=== PATIENT | female | born 1995 | race Caucasian/White ===

== ENCOUNTER 2017-07-26 03:05 | Emergency (ER) | payer MEDICAID ==
--- NOTE | 2017-07-26 03:34 | EDM.PDOC ---
ED HPI GENERAL MEDICAL PROBLEM - General Chief Complaint: General Stated Complaint: heavy vag bleeding Time Seen by Provider: 07/26/17 03:32 Source of Information: Reports: Patient History Limitations: Reports: No Limitations - History of Present Illness INITIAL COMMENTS - FREE TEXT/NARRATIVE: This patient is a 22 year old female that presents to the ER. Patient reports that she is 3 weeks post vaginal delivery without complications. She reports that she is G0, P1, A0. The patient reports that she has not had any bleeding recently. She reports then this morning she was laying in bed and felt as thought she had a lot of bleeding. She reports she got up went to the bathroom, had some bleeding then passed a large blood clot about size of a baseball. She reports the clot flushed down the toilet. She reports then she felt lightheaded. Patient reports that after she passed the clot her bleeding has resolved. Patent denies isbell, n, v, d, f, cp, soa, abd pain, pelvic pain, pelvic cramping. She is alert and oriented. She reports calling OB fish boning machine feeder and instructed to come to ER to be evaluated. Stable. Onset Date: 07/26/17 Onset Time: 01:00 Duration: Resolved Prior to Arrival Severity: Mild Improves with: Reports: None Worsens with: Reports: None Associated Symptoms: Denies: Confusion, Chest Pain, Cough, cough w sputum, Diaphoresis, Fever/Chills, Headaches, Loss of Appetite, Malaise, Nausea/Vomiting , Rash, Seizure, Shortness of Breath, Syncope, Weakness - Related Data Allergies Allergy/AdvReac Type Severity Reaction Status Date / Time No Known Allergies Allergy Verified 07/26/17 03:09 Home Meds: Home Meds . [No Known Home Meds] 05/08/17 [History] Past Medical History - Past Health History Medical/Surgical History: Denies Medical/Surgical History Social & Family History - Family History Family Medical History: Noncontributory - Tobacco Use Smoking Status *Q: Never Smoker Second Hand Smoke Exposure: No ED ROS GENERAL - Review of Systems Review Of Systems: See Below Constitutional: Reports: No Symptoms HEENT: Reports: No Symptoms Respiratory: Reports: No Symptoms Cardiovascular: Reports: Lightheadedness. Denies: Chest Pain, Dyspnea on Exertion, Syncope Endocrine: Reports: No Symptoms GI/Abdominal: Reports: No Symptoms : Reports: Other (vaginal bleeding with 1 baseball sized clot, then resolved. ) Musculoskeletal: Reports: No Symptoms Skin: Reports: No Symptoms Neurological: Reports: No Symptoms Psychiatric: Reports: No Symptoms Hematologic/Lymphatic: Reports: No Symptoms Immunologic: Reports: No Symptoms ED EXAM, GENERAL - Physical Exam Exam: See Below Exam Limited By: No Limitations General Appearance: Alert, WD/WN, No Apparent Distress Eye Exam: Bilateral Eye: Normal Inspection, PERRL Ears: Normal External Exam, Normal Canal, Hearing Grossly Normal, Normal TMs Ear Exam: Bilateral Ear: Auricle Normal, Canal Normal, TM normal Nose: Normal Inspection, Normal Mucosa, No Blood Throat/Mouth: Normal Inspection, Normal Lips, Normal Teeth, Normal Gums, Normal Oropharynx, Normal Voice, No Airway Compromise Head: Atraumatic, Normocephalic Neck: Normal Inspection, Supple, Non-Tender, Full Range of Motion Respiratory/Chest: No Respiratory Distress, Lungs Clear, Normal Breath Sounds, No Accessory Muscle Use Cardiovascular: Normal Peripheral Pulses, Regular Rate, Rhythm, No Edema, No Gallop, No JVD, No Murmur, No Rub Peripheral Pulses: 2+: Radial (L), Radial (R), Posterior Tibial (L), Posterior Tibial (R) GI/Abdominal: Normal Bowel Sounds, Soft, Non-Tender, No Organomegaly, No Distention, No Abnormal Bruit, No Mass, Pelvis Stable (Female) Exam: Vaginal Bleeding (mild to moderate. ), Other (With RAFAEL Simms at bedside and assistance. ). No: Adnexal Mass, Adnexal Tenderness, Cervical Dilatation, Cervical Discharge, Enlarged Uterus, Uterine Tenderness, Vaginal Discharge, Vaginal Lesions, Vaginal Tears Rectal (Female) Exam: Deferred Back Exam: Normal Inspection, Full Range of Motion. No: CVA Tenderness (L), CVA Tenderness (R) Extremities: Normal Inspection, Normal Range of Motion, Non-Tender, No Pedal Edema, Normal Capillary Refill Neurological: Alert, Oriented Psychiatric: Normal Affect, Normal Mood Skin Exam: Warm, Dry, Intact, Normal Color, No Rash Lymphatic: No Adenopathy Course - Vital Signs Last Recorded V/S: Last Vital Signs Temp 98.2 F 07/26/17 03:14 Pulse 65 07/26/17 03:14 Resp 18 07/26/17 03:14 BP 116/54 L 07/26/17 03:14 Pulse Ox 99 07/26/17 03:14 - Orders/Labs/Meds Labs: Laboratory Tests 07/26/17 07/26/17 07/26/17 Range/Units 03:36 03:36 03:46 WBC 5.3 (5.0-10.0) 10^3/uL RBC 4.63 (4.00-5.50) 10^6/uL Hgb 11.7 L (12.0-16.0) g/dL Hct 36.9 L (37.0-47.0) % MCV 79.7 L (82.0-94.0) fL MCH 25.3 L (27.0-32.0) pg MCHC 31.7 L (33.0-38.0) g/dL RDW Coeff of Sanjuanita 14.7 (11.0-15.0) % Plt Count 359 (150-400) 10^3/uL Neut % (Auto) 39.6 (35-85) % Lymph % (Auto) 48.0 (10-55) % [place] % (Auto) 7.5 (0-16) % Eos % (Auto) 4.1 (0-5) % Baso % (Auto) 0.8 (0-3) % Neut # (Auto) 2.11 (1.80-7.00) 10^3/uL Lymph # (Auto) 2.56 (1.00-4.80) 10^3/uL [place] # (Auto) 0.40 (0.00-0.80) 10^3/uL Eos # (Auto) 0.22 (0.00-0.45) 10^3/uL Baso # (Auto) 0.04 10^3/uL Sodium 142 (136-145) mEq/L Potassium 3.7 (3.5-5.0) mEq/L Chloride 105 (98-106) mEq/L Carbon Dioxide 29 (21-32) mmol/L BUN 11 D (7-18) mg/dL Creatinine 0.7 (0.6-1.0) mg/dL Est Cr Clr Drug Dosing 118.42 mL/min Estimated GFR (MDRD) > 60 (>=60) mL/min Glucose 103 H (75-99) mg/dL Calcium 9.2 (8.4-10.1) mg/dL Total Bilirubin 0.4 (0.0-1.0) mg/dL AST 18 (15-37) U/L ALT 22 (12-78) U/L Alkaline Phosphatase 132 H (46-116) U/L Total Protein 7.3 (6.4-8.2) g/dL Albumin 3.3 L (3.4-5.0) g/dL HCG, Qual Negative - Re-Assessments/Exams Free Text/Narrative Re-Assessment/Exam: 07/26/17 04:11 I have called POWER GRADER OPERATOR. They will call me back to discuss patient. 07/26/17 04:31 POWER GRADER OPERATOR, has not called back yet. I have called back and spoke with nurse in OB. They are still waiting on OB call back. The patient is wanting to leave. She would like to go home. She is hemodynamically stable. She reports she is leaving , she has given a phone #, we can call her if she needs to return. Stable patient. 07/26/17 04:57 Spoke to RN OB, they instructed me OB reported to have patient come to [place] if 1 pad saturated front to back in 1 hour, or continues to have clots. Right now she does not have these. Patient educated if these do not occur , then followup as scheduled. RN Demi will call patient to educate her. Departure - Departure Time of Disposition: 04:35 Disposition: Home, Self-Care 01 Condition: Good Clinical Impression: Vaginal bleeding - Discharge Information Instructions: Abnormal Uterine Bleeding Referrals: Tommy Hurst MD [Primary Care Provider] - Forms: ED Department Discharge Additional Instructions: Followup with your POWER GRADER OPERATOR Return to the ER for worsening of condition or any emergent concerns Increase fluids - Assessment/Plan Plan: PLEASE SEE RN NOTE FOR PFSH .
[2017-07-26 03:50] LABS: CHLORIDE,CL 105 mEq/L (98-106); SODIUM,NA 142 mEq/L (136-145)
== END 2017-07-26 04:30 | disposition home or self-care (01) ==
LOC: CC.ED 03:05
DX: O72.1 Other immediate postpartum hemorrhage (principal)
CPT/HCPCS: 36415; 80053; 84703; 85025; 99283